=== PATIENT | female | born 2000 | race Caucasian/White ===

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

== ENCOUNTER 2022-11-03 07:00 | Inpatient (IN) | payer OTHER ==
[2022-11-03] VITALS (29 sets, daily range): BP systolic 90–150; BP diastolic 50–92
[~2022-11-03] VITALS: Ht 165.1 cm; Wt 85.0 kg
[2022-11-03 10:58] LABS: BASOPHILS ABSOLUTE AUTO 0.05 K/mm3 (0.00-0.23); BASOPHILS PERCENT AUTO 0 % (0-2); EOSINOPHILS PERCENT AUTO 0 % (0-6); Hematocrit 35.9 % (33.0-51.0); Hemoglobin 11.5 g/dL (11.5-16.0); IMMATURE GRAN ABSOLUTE AUTO 0.06 K/mm3 (0.00-0.10); IMMATURE GRAN PERCENT AUTO 1 % (0-1); LYMPHOCYTES ABSOLUTE AUTO 2.11 K/mm3 (0.84-5.20); LYMPHOCYTES PERCENT AUTO 18 % (21-46); MONOCYTES ABSOLUTE AUTO 0.63 K/mm3 (0.16-1.47); MONOCYTES PERCENT AUTO 5 % (4-13); Mean Corpuscular HGB 27.1 pg (26.0-34.0); Mean Corpuscular Volume 85 fL (80-100); Mean Platelet Volume 10.6 fL (9.1-12.4); NEUTROPHILS ABSOLUTE AUTO 9.16 K/mm3 (1.96-9.15); NEUTROPHILS PERCENT AUTO 76 % (41-73); Platelet Count 292 K/mm3 (150-400); RDW Coefficient Variation 12.9 % (11.7-14.2); RDW Standard Deviation 39.3 fL (35.1-46.3); Red Blood Cell Count 4.25 M/mm3 (3.80-5.20); White Blood Cell Count 12.01 K/mm3 (4.00-11.30)
[2022-11-04 02:38] VITALS: BP 122/59
[2022-11-04 07:25] LABS: Hematocrit 34.4 % (33.0-51.0); Hemoglobin 11.3 g/dL (11.5-16.0); Mean Corpuscular HGB 27.7 pg (26.0-34.0); Mean Corpuscular HGB Conc 32.8 g/dL (31.5-36.5); Mean Corpuscular Volume 84 fL (80-100); Mean Platelet Volume 10.1 fL (9.1-12.4); Platelet Count 240 K/mm3 (150-400); RDW Coefficient Variation 12.8 % (11.7-14.2); RDW Standard Deviation 39.2 fL (35.1-46.3); Red Blood Cell Count 4.08 M/mm3 (3.80-5.20); White Blood Cell Count 13.31 K/mm3 (4.00-11.30)
[2022-11-04 07:49] VITALS: BP 106/58
[2022-11-04 11:13] VITALS: BP 114/54
[2022-11-04] MEDS ORDERED: IBUP800 PO (16:39)
[2022-11-04 17:46] VITALS: BP 117/63
--- NOTE | 2022-11-04 17:51 | NUR ---
BANDS MATCHED. PT TO BE DISCHARGED HOME WITH .
== END 2022-11-04 18:20 | disposition home or self-care (01) | DRG 806 ==
LOC: OBS 07:00 → BC 07:01 → OBS 08:48 → BC 08:49
PROVIDERS: ADMIT Advanced Practice Midwife
PROC: 10E0XZZ Delivery of Products of Conception, External Approach (ICD-10-PCS; principal; 2022-11-03)
PROC: 10907ZC Drainage of Amniotic Fluid, Therapeutic from Products of Conception, Via Natural or Artificial Opening (ICD-10-PCS; 2022-11-03)
PROC: 3E033VJ Introduction of Other Hormone into Peripheral Vein, Percutaneous Approach (ICD-10-PCS; 2022-11-03)
PROC: 3E0R3BZ Introduction of Anesthetic Agent into Spinal Canal, Percutaneous Approach (ICD-10-PCS; 2022-11-03)
PROC: 00HU33Z Insertion of Infusion Device into Spinal Canal, Percutaneous Approach (ICD-10-PCS; 2022-11-03)
DX: O99.344 Other mental disorders complicating childbirth (principal); O98.32 Other infections with a predominantly sexual mode of transmission complicating childbirth; Z37.0 Single live birth; F31.9 Bipolar disorder, unspecified; A60.09 Herpesviral infection of other urogenital tract; F41.9 Anxiety disorder, unspecified; Z91.018 Allergy to other foods; Z91.040 Latex allergy status; Z3A.39 39 weeks gestation of pregnancy
CPT/HCPCS: 36415; 51702; 85025; 85027; 86850; 86900; 86901; A9270; J2210; J2590; J3010; J7120

== ENCOUNTER 2023-02-15 21:48 | Emergency (ER) | payer OTHER ==
[~2023-02-15] VITALS: Ht 165.1 cm; Wt 68.0 kg
[2023-02-15 22:16] VITALS: BP 154/88
[2023-02-15 22:46] LABS: Hematocrit 39.3 % (33.0-51.0); Hemoglobin 13.3 g/dL (11.5-16.0); Mean Corpuscular HGB Conc 33.8 g/dL (31.5-36.5); Mean Corpuscular Volume 86 fL (80-100); Mean Platelet Volume 10.7 fL (9.1-12.4); Platelet Count 280 K/mm3 (150-400); RDW Coefficient Variation 12.9 % (11.7-14.2); RDW Standard Deviation 39.9 fL (35.1-46.3); Red Blood Cell Count 4.58 M/mm3 (3.80-5.20); White Blood Cell Count 6.89 K/mm3 (4.00-11.30)
[2023-02-15 23:06] LABS: Albumin, Blood 4.3 g/dL (3.4-5.0); Bilirubin, Total 0.4 mg/dL (0.1-1.0); Bun/Creatinine Ratio 21.3 (12.0-20.0); Calcium, Blood 9.3 mg/dL (8.5-10.1); Creatinine, Blood 0.75 mg/dL (0.40-1.00); Globulin, Blood 4.1 g/dL (2.2-4.0); Potassium, Blood 3.3 mmol/L (3.5-5.5); Total Protein, Blood 8.4 g/dL (6.4-8.2)
[2023-02-15 23:28] LABS: BASOPHILS ABSOLUTE MAN 0.06 K/mm3 (0.00-0.23); BASOPHILS PERCENT MAN 1 % (0-2); EOSINOPHILS PERCENT MAN 3 % (0-6); LYMPHOCYTES PERCENT MAN 32 % (21-46); MONOCYTES ABSOLUTE MAN 0.75 K/mm3 (0.16-1.47); MONOCYTES PERCENT MAN 11 % (4-13); NEUTROPHILS ABSOLUTE MAN 3.65 K/mm3 (1.96-9.15); SEG NEUTROPHILS PERCENT MAN 53 % (41-73); TOTAL CELLS COUNTED 100
== END 2023-02-15 23:44 | disposition home or self-care (01) ==
LOC: ER 21:48
PROVIDERS: Physician Assistant
DX: K52.9 Noninfective gastroenteritis and colitis, unspecified (principal); Z91.040 Latex allergy status; Z91.018 Allergy to other foods
CPT/HCPCS: 80053; 84703; 85025; 99284; A9270

== ENCOUNTER 2023-11-29 16:15 | Emergency (ER) | payer OTHER ==
[~2023-11-29] VITALS: Ht 165.1 cm; Wt 70.3 kg
[2023-11-29 16:26] VITALS: BP 128/83
[2023-11-29] MEDS ORDERED: CefTRIAXone 1000 MG Vial IM ONE (16:30)
== END 2023-11-29 16:49 | disposition home or self-care (01) ==
LOC: ER 16:15
DX: L03.113 Cellulitis of right upper limb (principal)
CPT/HCPCS: 96372; 99283-25; J0696

== ENCOUNTER 2024-09-12 09:44 | Emergency (ER) | payer OTHER ==
[~2024-09-12] VITALS: Ht 167.6 cm; Wt 70.3 kg
[2024-09-12] MEDS ORDERED: NS 1,000 ML IV SCH (10:15)
[2024-09-12 10:23] LABS: Source, Urine Clean Catch
[2024-09-12 10:41] LABS: Appearance, Urine Clear (Clear); Bilirubin, Urine Neg (Neg); Blood, Urine 3+ (Neg); Color, Urine Yellow (P-Yellow); Glucose Qualitative, Urine Neg (Neg); Ketones, Urine Neg (Neg); Leukocyte Esterase, Urine Neg (Neg); Nitrite, Urine Neg (Neg); Protein, Urine 1+ (Neg); Specific Gravity, Urine 1.015 (1.003-1.022); Urobilinogen, Urine NORM (Normal)
[2024-09-12 10:55] LABS: BASOPHILS ABSOLUTE AUTO 0.06 K/mm3 (0.00-0.23); BASOPHILS PERCENT AUTO 1 % (0-2); EOSINOPHILS ABSOLUTE AUTO 0.01 K/mm3 (0.00-0.68); EOSINOPHILS PERCENT AUTO 0 % (0-6); Hematocrit 40.3 % (33.0-51.0); Hemoglobin 13.6 g/dL (11.5-16.0); IMMATURE GRAN ABSOLUTE AUTO 0.02 K/mm3 (0.00-0.10); IMMATURE GRAN PERCENT AUTO 0 % (0-1); LYMPHOCYTES ABSOLUTE AUTO 1.47 K/mm3 (0.84-5.20); LYMPHOCYTES PERCENT AUTO 12 % (21-46); MONOCYTES ABSOLUTE AUTO 0.61 K/mm3 (0.16-1.47); MONOCYTES PERCENT AUTO 5 % (4-13); Mean Corpuscular HGB 29.4 pg (26.0-34.0); Mean Corpuscular HGB Conc 33.7 g/dL (31.5-36.5); Mean Corpuscular Volume 87 fL (80-100); Mean Platelet Volume 10.5 fL (9.1-12.4); NEUTROPHILS ABSOLUTE AUTO 9.68 K/mm3 (1.96-9.15); NEUTROPHILS PERCENT AUTO 82 % (41-73); Platelet Count 237 K/mm3 (150-400); RDW Coefficient Variation 11.9 % (11.7-14.2); RDW Standard Deviation 38.3 fL (35.1-46.3); Red Blood Cell Count 4.62 M/mm3 (3.80-5.20); White Blood Cell Count 11.85 K/mm3 (4.00-11.30)
[2024-09-12 10:58] LABS: Amorphous Light (0-Heavy); Bacteria Many /hpf; Mucus Heavy (0-Heavy); Red Blood Cells, Urine 0-2 /hpf (0-2); Squamous Epithelial Cells Many /hpf (Few); White Blood Cells, Urine 0-2 /hpf (0-5)
[2024-09-12 10:59] LABS: Transitional Epithelial Cells Rare /hpf (0-Rare)
[2024-09-12] MEDS ORDERED: Ketorolac Tromethamine 15mg Vial IV ONE (11:00)
[2024-09-12 11:25] LABS: Albumin, Blood 3.9 g/dL (3.4-5.0); Bilirubin, Total 0.6 mg/dL (0.1-1.0); Bun/Creatinine Ratio 18.8 (12.0-20.0); Creatinine, Blood 0.64 mg/dL (0.40-1.00); Magnesium, Blood 1.8 mg/dL (1.6-2.4); Phosphorus, Blood 2.9 mg/dL (2.5-4.9); Potassium, Blood 3.5 mmol/L (3.5-5.5); Total Protein, Blood 7.9 g/dL (6.4-8.2)
[2024-09-12] MEDS ORDERED: DiphenhydrAMINE HCl 50 MG/ML 1ML Vial IV ONE (12:30)
[2024-09-12] MEDS ORDERED: Prochlorperazine Edisylate 10 mg Vial IV ONE (12:30)
[2024-09-12 13:59] VITALS: BP 118/69
== END 2024-09-12 14:00 | disposition home or self-care (01) ==
LOC: ER 09:44
PROVIDERS: Physician Assistant
DX: E86.0 Dehydration (principal); Z91.040 Latex allergy status; Z91.018 Allergy to other foods; Z59.89 Other problems related to housing and economic circumstances
CPT/HCPCS: 80053; 81001; 81025; 83690; 83735; 84100; 85025; 85379; 87086; 93005; 93010; 96374; 96375; 99284-25; J0780; J1200; J1885; J7030

== ENCOUNTER 2024-11-24 23:24 | Emergency (ER) | payer OTHER ==
[~2024-11-24] VITALS: Ht 165.1 cm; Wt 70.3 kg
[2024-11-24 23:35] VITALS: BP 130/86
== END 2024-11-25 01:11 | disposition home or self-care (01) ==
LOC: ER 23:24
DX: M79.602 Pain in left arm (principal); Z91.040 Latex allergy status; Z91.018 Allergy to other foods
CPT/HCPCS: 93971; 99283-25

== ENCOUNTER 2025-01-22 19:33 | Emergency (ER) | payer OTHER ==
[~2025-01-22] VITALS: Ht 165.1 cm; Wt 70.3 kg
[2025-01-22 21:19] VITALS: BP 109/45
[2025-01-22] MEDS ORDERED: Ondansetron 4 MG SoluTab SL ONE (22:40)
== END 2025-01-22 22:54 | disposition home or self-care (01) ==
LOC: ER 19:33
DX: G43.909 Migraine, unspecified, not intractable, without status migrainosus (principal); R06.4 Hyperventilation; Z91.040 Latex allergy status; Z91.018 Allergy to other foods
CPT/HCPCS: 99282; A9270

== ENCOUNTER 2025-01-27 23:44 | Emergency (ER) | payer OTHER ==
[~2025-01-27] VITALS: Ht 165.1 cm; Wt 70.3 kg
[2025-01-28 01:43] LABS: BASOPHILS ABSOLUTE AUTO 0.07 K/mm3 (0.00-0.23); BASOPHILS PERCENT AUTO 1 % (0-2); EOSINOPHILS ABSOLUTE AUTO 0.29 K/mm3 (0.00-0.68); EOSINOPHILS PERCENT AUTO 4 % (0-6); Hematocrit 41.1 % (33.0-51.0); Hemoglobin 13.9 g/dL (11.5-16.0); IMMATURE GRAN ABSOLUTE AUTO 0.05 K/mm3 (0.00-0.10); IMMATURE GRAN PERCENT AUTO 1 % (0-1); LYMPHOCYTES ABSOLUTE AUTO 1.75 K/mm3 (0.84-5.20); LYMPHOCYTES PERCENT AUTO 24 % (21-46); MONOCYTES ABSOLUTE AUTO 0.53 K/mm3 (0.16-1.47); MONOCYTES PERCENT AUTO 7 % (4-13); Mean Corpuscular HGB Conc 33.8 g/dL (31.5-36.5); Mean Corpuscular Volume 86 fL (80-100); NEUTROPHILS ABSOLUTE AUTO 4.69 K/mm3 (1.96-9.15); NEUTROPHILS PERCENT AUTO 64 % (41-73); NRBC ABSOLUTE 0.00 K/mm3 (0.00-0.02); NRBC Auto 0.0 /100 WBC (0.0-0.2); Platelet Count 260 K/mm3 (150-400); RDW Coefficient Variation 11.8 % (11.7-14.2); RDW Standard Deviation 37.2 fL (35.1-46.3)
[2025-01-28 02:04] LABS: Alanine Aminotransfer (ALT/SGP 11.0 U/L (12-78); Albumin, Blood 4.7 g/dL (3.4-5.0); Albumin/Globulin Ratio 1.4 (0.8-1.8); Anion Gap 9.0 mmol/L (3-11); Aspartate Aminotrans (AST/SGOT 12.0 U/L (12-37); Bilirubin, Total 0.9 mg/dL (0.1-1.0); Blood Urea Nitrogen 15.0 mg/dL (8-24); CO2, Blood 24.0 mmol/L (21-32); Calcium, Blood 9.1 mg/dL (8.5-10.1); Chloride, Blood 106.0 mmol/L (98-108); Creatinine, Blood 0.7 mg/dL (0.40-1.00); Globulin, Blood 3.4 g/dL (2.2-4.0); Glucose, Blood 84.0 mg/dL (70-99); Potassium, Blood 3.3 mmol/L (3.5-5.5); Sodium, Blood 136.0 mmol/L (136-145); Total Protein, Blood 8.1 g/dL (6.4-8.2)
[2025-01-28 02:42] LABS: Source, Urine Clean Catch
[2025-01-28 02:59] LABS: Bilirubin, Urine Neg (Neg); Glucose Qualitative, Urine Neg (Neg); Ketones, Urine 4+ (Neg); Leukocyte Esterase, Urine 3+ (Neg); Protein, Urine 1+ (Neg); Specific Gravity, Urine 1.020 (1.003-1.022); Urobilinogen, Urine NORM (Normal)
[2025-01-28 03:02] LABS: Color, Urine Yellow (P-Yellow)
[2025-01-28 03:05] LABS: Red Blood Cells, Urine 0-2 /hpf (0-2)
[2025-01-28 03:32] VITALS: BP 109/64
== END 2025-01-28 03:34 | disposition home or self-care (01) ==
LOC: ER 23:44
PROVIDERS: Emergency Medicine
DX: R10.11 Right upper quadrant pain (principal); Z91.040 Latex allergy status; Z91.018 Allergy to other foods
CPT/HCPCS: 76705; 80053; 81001; 81025; 83690; 85025; 87086; 99284-25

== ENCOUNTER 2025-01-30 00:59 | Emergency (ER) | payer OTHER ==
[~2025-01-30] VITALS: Ht 165.1 cm; Wt 68.0 kg
[2025-01-30 02:59] LABS: BASOPHILS ABSOLUTE AUTO 0.08 K/mm3 (0.00-0.23); BASOPHILS PERCENT AUTO 1 % (0-2); EOSINOPHILS ABSOLUTE AUTO 0.01 K/mm3 (0.00-0.68); EOSINOPHILS PERCENT AUTO 0 % (0-6); Hematocrit 41.6 % (33.0-51.0); Hemoglobin 14.4 g/dL (11.5-16.0); IMMATURE GRAN ABSOLUTE AUTO 0.01 K/mm3 (0.00-0.10); IMMATURE GRAN PERCENT AUTO 0 % (0-1); LYMPHOCYTES ABSOLUTE AUTO 2.22 K/mm3 (0.84-5.20); LYMPHOCYTES PERCENT AUTO 32 % (21-46); MONOCYTES ABSOLUTE AUTO 0.50 K/mm3 (0.16-1.47); MONOCYTES PERCENT AUTO 7 % (4-13); Mean Corpuscular HGB Conc 34.6 g/dL (31.5-36.5); Mean Corpuscular Volume 84 fL (80-100); NEUTROPHILS ABSOLUTE AUTO 4.22 K/mm3 (1.96-9.15); NEUTROPHILS PERCENT AUTO 60 % (41-73); NRBC ABSOLUTE 0.00 K/mm3 (0.00-0.02); NRBC Auto 0.0 /100 WBC (0.0-0.2); Platelet Count 265 K/mm3 (150-400); RDW Coefficient Variation 11.9 % (11.7-14.2); RDW Standard Deviation 35.8 fL (35.1-46.3)
[2025-01-30 03:22] LABS: Alanine Aminotransfer (ALT/SGP 10.0 U/L (12-78); Albumin, Blood 4.9 g/dL (3.4-5.0); Albumin/Globulin Ratio 1.3 (0.8-1.8); Anion Gap 10.0 mmol/L (3-11); Aspartate Aminotrans (AST/SGOT 11.0 U/L (12-37); Bilirubin, Total 0.7 mg/dL (0.1-1.0); Blood Urea Nitrogen 12.0 mg/dL (8-24); CO2, Blood 24.0 mmol/L (21-32); Calcium, Blood 9.3 mg/dL (8.5-10.1); Chloride, Blood 107.0 mmol/L (98-108); Creatinine, Blood 0.69 mg/dL (0.40-1.00); Globulin, Blood 3.7 g/dL (2.2-4.0); Glucose, Blood 88.0 mg/dL (70-99); Potassium, Blood 3.7 mmol/L (3.5-5.5); Sodium, Blood 137.0 mmol/L (136-145); Total Protein, Blood 8.6 g/dL (6.4-8.2)
[2025-01-30] MEDS ORDERED: FentaNYL Citrate 50 MCG/ML 2 ML Injection IV PRN (03:50)
[2025-01-30] MEDS ORDERED: NS 1,000 ML IV SCH (03:50)
[2025-01-30 04:30] VITALS: BP 106/57
== END 2025-01-30 05:14 | disposition home or self-care (01) ==
LOC: ER 00:59
PROVIDERS: Emergency Medicine
DX: R10.11 Right upper quadrant pain (principal); E86.0 Dehydration; Z59.89 Other problems related to housing and economic circumstances; Z91.040 Latex allergy status; Z91.018 Allergy to other foods
CPT/HCPCS: 76705; 80053; 83690; 84703; 85025; 99284-25; J7030

== ENCOUNTER 2025-02-02 05:08 | Emergency (ER) | payer OTHER ==
[~2025-02-02] VITALS: Ht 165.1 cm; Wt 67.1 kg
[2025-02-02 07:03] LABS: BASOPHILS ABSOLUTE AUTO 0.05 K/mm3 (0.00-0.23); BASOPHILS PERCENT AUTO 1 % (0-2); EOSINOPHILS ABSOLUTE AUTO 0.18 K/mm3 (0.00-0.68); EOSINOPHILS PERCENT AUTO 3 % (0-6); Hematocrit 39.6 % (33.0-51.0); Hemoglobin 14.0 g/dL (11.5-16.0); IMMATURE GRAN ABSOLUTE AUTO 0.01 K/mm3 (0.00-0.10); IMMATURE GRAN PERCENT AUTO 0 % (0-1); LYMPHOCYTES ABSOLUTE AUTO 1.51 K/mm3 (0.84-5.20); LYMPHOCYTES PERCENT AUTO 25 % (21-46); MONOCYTES ABSOLUTE AUTO 0.44 K/mm3 (0.16-1.47); MONOCYTES PERCENT AUTO 7 % (4-13); Mean Corpuscular HGB Conc 35.4 g/dL (31.5-36.5); Mean Corpuscular Volume 83 fL (80-100); NEUTROPHILS ABSOLUTE AUTO 3.90 K/mm3 (1.96-9.15); NEUTROPHILS PERCENT AUTO 64 % (41-73); NRBC ABSOLUTE 0.00 K/mm3 (0.00-0.02); NRBC Auto 0.0 /100 WBC (0.0-0.2); Platelet Count 232 K/mm3 (150-400); RDW Coefficient Variation 11.9 % (11.7-14.2); RDW Standard Deviation 35.6 fL (35.1-46.3)
[2025-02-02] MEDS ORDERED: Ondansetron HCl 2 MG / ML 2ML Vial IV ONE (07:05)
[2025-02-02] MEDS ORDERED: FentaNYL Citrate 50 MCG/ML 2 ML Injection IV ONE (07:05)
[2025-02-02 07:16] LABS: Alanine Aminotransfer (ALT/SGP 12.0 U/L (12-78); Albumin, Blood 4.8 g/dL (3.4-5.0); Albumin/Globulin Ratio 1.4 (0.8-1.8); Anion Gap 14.0 mmol/L (3-11); Aspartate Aminotrans (AST/SGOT 10.0 U/L (12-37); Bilirubin, Total 0.9 mg/dL (0.1-1.0); Blood Urea Nitrogen 12.0 mg/dL (8-24); CO2, Blood 21.0 mmol/L (21-32); Calcium, Blood 9.2 mg/dL (8.5-10.1); Chloride, Blood 106.0 mmol/L (98-108); Creatinine, Blood 0.75 mg/dL (0.40-1.00); Globulin, Blood 3.4 g/dL (2.2-4.0); Glucose, Blood 79.0 mg/dL (70-99); Potassium, Blood 3.4 mmol/L (3.5-5.5); Sodium, Blood 138.0 mmol/L (136-145); Total Protein, Blood 8.2 g/dL (6.4-8.2)
[2025-02-02] MEDS ORDERED: Morphine Sulfate 4 MG/1 ML Injection IV ONE (08:10)
[2025-02-02] MEDS ORDERED: NS 1,000 ML IV SCH (08:25)
[2025-02-02] MEDS ORDERED: OXYACE7.5T PO (08:54)
[2025-02-02] MEDS ORDERED: ONDA4ODT MM (08:54)
[2025-02-02] MEDS ORDERED: LORazepam 2 MG/ML 1ML Injection IV ONE (09:05)
[2025-02-02] MEDS ORDERED: OxyCODONE 5 mg/Acetamin 325 mg TABLET PO ONE (09:40)
[2025-02-02] MEDS ORDERED: IBUP600 PO (09:58)
[2025-02-02] MEDS ORDERED: LIDO700A20 TOP (09:58)
[2025-02-02 10:00] VITALS: BP 114/67
== END 2025-02-02 10:14 | disposition home or self-care (01) ==
LOC: ER 05:08
PROVIDERS: Emergency Medicine
DX: K80.70 Calculus of gallbladder and bile duct without cholecystitis without obstruction (principal); Z91.040 Latex allergy status; E87.6 Hypokalemia
CPT/HCPCS: 76705; 80053; 83690; 85025; 96361; 96374; 96375; 99284-25; A9270; J2060; J2270; J2405; J3010; J7030

== ENCOUNTER 2025-02-04 07:06 | Day surgery (SDC) | payer OTHER ==
[2025-02-04] VITALS (10 sets, daily range): BP systolic 116–133; BP diastolic 58–98
[~2025-02-04] VITALS: Ht 165.1 cm; Wt 67.1 kg
[~2025-02-04 07:06] MED LIST changes: +IBUP600 PO; +LIDO700A20 TOP; +ONDA4ODT MM; +OXYACE7.5T PO
[2025-02-04] MEDS ORDERED: Ketorolac Tromethamine 30mg Vial IV ONE (07:35)
[2025-02-04] MEDS ORDERED: Ondansetron HCl 2 MG / ML 2ML Vial IV ONE (07:55)
[2025-02-04] MEDS ORDERED: Midazolam HCl 1MG / ML 2ML Vial IV ONE ×2 (08:20→11:30)
[2025-02-04 08:39] LABS: BASOPHILS ABSOLUTE AUTO 0.05 K/mm3 (0.00-0.23); BASOPHILS PERCENT AUTO 1 % (0-2); Hematocrit 37.8 % (33.0-51.0); Hemoglobin 12.9 g/dL (11.5-16.0); LYMPHOCYTES ABSOLUTE AUTO 1.07 K/mm3 (0.84-5.20); LYMPHOCYTES PERCENT AUTO 16 % (21-46); MONOCYTES ABSOLUTE AUTO 0.28 K/mm3 (0.16-1.47); MONOCYTES PERCENT AUTO 4 % (4-13); Mean Corpuscular HGB Conc 34.1 g/dL (31.5-36.5); Mean Corpuscular Volume 85 fL (80-100); NRBC ABSOLUTE 0.00 K/mm3 (0.00-0.02); NRBC Auto 0.0 /100 WBC (0.0-0.2); RDW Coefficient Variation 11.9 % (11.7-14.2); RDW Standard Deviation 36.9 fL (35.1-46.3)
[2025-02-04 08:47] LABS: EOSINOPHILS ABSOLUTE AUTO 1.25 K/mm3 (0.00-0.68); EOSINOPHILS PERCENT AUTO 18 % (0-6); IMMATURE GRAN ABSOLUTE AUTO 0.01 K/mm3 (0.00-0.10); IMMATURE GRAN PERCENT AUTO 0 % (0-1); NEUTROPHILS ABSOLUTE AUTO 4.24 K/mm3 (1.96-9.15); NEUTROPHILS PERCENT AUTO 62 % (41-73)
[2025-02-04 08:54] LABS: Alanine Aminotransfer (ALT/SGP 10.0 U/L (12-78); Albumin, Blood 4.4 g/dL (3.4-5.0); Albumin/Globulin Ratio 1.4 (0.8-1.8); Anion Gap 17.0 mmol/L (3-11); Aspartate Aminotrans (AST/SGOT 10.0 U/L (12-37); Bilirubin, Direct 0.2 mg/dL (0.0-0.3); Bilirubin, Indirect 0.5 mg/dL (0.1-0.7); Bilirubin, Total 0.7 mg/dL (0.1-1.0); Blood Urea Nitrogen 13.0 mg/dL (8-24); CO2, Blood 17.0 mmol/L (21-32); Calcium, Blood 9.0 mg/dL (8.5-10.1); Chloride, Blood 105.0 mmol/L (98-108); Creatinine, Blood 0.69 mg/dL (0.40-1.00); Globulin, Blood 3.2 g/dL (2.2-4.0); Glucose, Blood 65.0 mg/dL (70-99); Potassium, Blood 3.3 mmol/L (3.5-5.5); Sodium, Blood 136.0 mmol/L (136-145); Total Protein, Blood 7.6 g/dL (6.4-8.2)
[2025-02-04] MEDS ORDERED: Potassium Chl 20MEQ/Water100ML 200 ML IV ONE (09:00)
[2025-02-04] MEDS ORDERED: D5W-NS 500 ML IV SCH (09:00)
[2025-02-04] MEDS ORDERED: Potassium Chl 20MEQ/Water100ML 100 ML IV SCH (09:15)
[2025-02-04 09:26] LABS: Source, Urine Clean Catch
[2025-02-04 09:37] LABS: Bilirubin, Urine Neg (Neg); Glucose Qualitative, Urine Neg (Neg); Ketones, Urine 4+ (Neg); Leukocyte Esterase, Urine 1+ (Neg); Protein, Urine Neg (Neg); Specific Gravity, Urine 1.015 (1.003-1.022); Urobilinogen, Urine NORM (Normal)
[2025-02-04 09:55] LABS: Color, Urine Yellow (P-Yellow)
[2025-02-04] MEDS ORDERED: Ampicillin Sod/Sulbactam Sod 3 GM in NS 100 ML IV ONE (10:30)
[2025-02-04] MEDS ORDERED: HYDROmorphone HCl/Pf 1MG SYR IV ONE (10:30)
[2025-02-04] MEDS ORDERED: Bupivacaine 0.5% HCl 5 MG/ML 30MLVIAL ONE (10:56)
[2025-02-04] MEDS ORDERED: Rocuronium Bromide 10 MG/ML 5ML Injection IV ONE ×2 (11:03→11:56)
[2025-02-04] MEDS ORDERED: FentaNYL Citrate 50 MCG/ML 2 ML Injection ONE ×2 (11:03→11:56)
[2025-02-04] MEDS ORDERED: Metoclopramide HCl 5MG / ML 2ML Vial IV PRN (11:25)
[2025-02-04] MEDS ORDERED: Ondansetron HCl 2 MG / ML 2ML Vial IV PRN ×2 (11:25→13:15)
[2025-02-04] MEDS ORDERED: FentaNYL Citrate 50 MCG/ML 2 ML Injection IV PRN (11:25)
[2025-02-04] MEDS ORDERED: Midazolam HCl 1MG / ML 2ML Vial ONE (11:27)
[2025-02-04] MEDS ORDERED: Ketorolac Tromethamine 30mg Vial IV PRN (11:30)
[2025-02-04] MEDS ORDERED: Dexamethasone Sod Phos 10 MG/ML 1ML VIAL ONE (11:48)
[2025-02-04] MEDS ORDERED: Phenylephrine HCl 100 MCG/ML-NS 10MLSYR (1MG/10ML) ONE (12:01)
[2025-02-04] MEDS ORDERED: Neostigmine Methylsulfate 5MG/5ML SYR ONE (12:21)
[2025-02-04] MEDS ORDERED: Glycopyrrolate 0.2 MG/ML 5ML VIAL ONE (12:21)
[2025-02-04] MEDS ORDERED: Ondansetron HCl 2 MG / ML 2ML Vial ONE (12:31)
[2025-02-04] MEDS ORDERED: HYDROcodone 5-APAP 325 TAB PO PRN (13:15)
--- NOTE | 2025-02-04 13:30 | NUR ---
POST OP ARRIVAL TO SURGICAL UNIT VIA GOURNEY, SLID TO BED. VERY DROWSY BUT OPENS EYES & SPEAKS w/ A SLUR. ASSESSMENT CHARTED. MOM AT BEDSIDE, LOVING & ATTENTIVE. Rx GIVEN TO MOM. SIP OF WATER GIVEN. MOM EDUCATED ON WAITING TO TAKE IN ORAL FLUIDS UNTIL MORE ALERT.
[2025-02-04] MEDS ORDERED: Norco 5-325 Ta1 EACH PO (16:35)
--- NOTE | 2025-02-04 18:33 | NUR ---
DISCHARGE EATING, DRINKING, & VOIDING. PAIN WELL CONTROLLED. AMBULATES EASILY. LAP SITES WNL. FEELS COMFORTABLE w/ DC.
== END 2025-02-04 18:40 | disposition home or self-care (01) ==
LOC: ORSCMMR 07:06 → ER 07:06 → SURS 07:07 → ER 11:04 → SURS 13:22 → EDSTATUS 15:15 → SURS 18:40 → ORSCMMR 18:40
PROVIDERS: Student in an Organized Health Care Education/Training Program; Surgery
PROC: 0FT44ZZ Resection of Gallbladder, Percutaneous Endoscopic Approach (ICD-10-PCS; principal; 2025-02-04 11:15)
DX: K80.12 Calculus of gallbladder with acute and chronic cholecystitis without obstruction (principal); Z91.040 Latex allergy status; Z91.018 Allergy to other foods
CPT/HCPCS: 76705; 80048; 80076; 81001; 83690; 84703; 85025; 88304; 93005; 93010; 96361; 96365; 96367; 96375; 99285-25; A9270; C1729; J0295; J1100; J1171; J1885; J2250; J2371; J2405; J2704; J2710; J3010; J3480; J7042; J7120

== ENCOUNTER → 2025-02-09 | Outpatient (CLI) | payer OTHER ==
[~2025-02-09] MED LIST changes: +Norco 5-325 Ta1 EACH PO
== END ==
LOC: LAB SHORT 16:31 → LAB 16:31
DX: N39.0 Urinary tract infection, site not specified (principal)
CPT/HCPCS: 87086

== ENCOUNTER → 2025-02-16 | Outpatient (CLI) | payer OTHER ==
[2025-02-16 15:15] LABS: BASOPHILS ABSOLUTE AUTO 0.03 K/mm3 (0.00-0.23); BASOPHILS PERCENT AUTO 1 % (0-2); EOSINOPHILS ABSOLUTE AUTO 0.00 K/mm3 (0.00-0.68); EOSINOPHILS PERCENT AUTO 0 % (0-6); Hematocrit 35.5 % (33.0-51.0); Hemoglobin 12.2 g/dL (11.5-16.0); IMMATURE GRAN ABSOLUTE AUTO 0.00 K/mm3 (0.00-0.10); IMMATURE GRAN PERCENT AUTO 0 % (0-1); LYMPHOCYTES ABSOLUTE AUTO 1.37 K/mm3 (0.84-5.20); LYMPHOCYTES PERCENT AUTO 44 % (21-46); MONOCYTES ABSOLUTE AUTO 0.55 K/mm3 (0.16-1.47); MONOCYTES PERCENT AUTO 18 % (4-13); Mean Corpuscular HGB Conc 34.4 g/dL (31.5-36.5); Mean Corpuscular Volume 86 fL (80-100); NEUTROPHILS ABSOLUTE AUTO 1.15 K/mm3 (1.96-9.15); NEUTROPHILS PERCENT AUTO 37 % (41-73); NRBC ABSOLUTE 0.00 K/mm3 (0.00-0.02); NRBC Auto 0.0 /100 WBC (0.0-0.2); Platelet Count 192 K/mm3 (150-400); RDW Coefficient Variation 13.0 % (11.7-14.2); RDW Standard Deviation 40.2 fL (35.1-46.3)
[2025-02-16 15:30] LABS: Alanine Aminotransfer (ALT/SGP 13.0 U/L (12-78); Albumin, Blood 4.0 g/dL (3.4-5.0); Albumin/Globulin Ratio 1.3 (0.8-1.8); Anion Gap 12.0 mmol/L (3-11); Aspartate Aminotrans (AST/SGOT 13.0 U/L (12-37); Bilirubin, Total 0.3 mg/dL (0.1-1.0); Blood Urea Nitrogen 6.0 mg/dL (8-24); CO2, Blood 27.0 mmol/L (21-32); Calcium, Blood 8.7 mg/dL (8.5-10.1); Chloride, Blood 105.0 mmol/L (98-108); Creatinine, Blood 0.72 mg/dL (0.40-1.00); Globulin, Blood 3.2 g/dL (2.2-4.0); Glucose, Blood 90.0 mg/dL (70-99); Potassium, Blood 4.1 mmol/L (3.5-5.5); Sodium, Blood 140.0 mmol/L (136-145); Total Protein, Blood 7.2 g/dL (6.4-8.2)
== END ==
LOC: LAB SHORT 15:03 → LAB 15:03
PROVIDERS: Family Medicine
DX: N39.0 Urinary tract infection, site not specified (principal)
CPT/HCPCS: 80053; 85025; 87086

== ENCOUNTER 2025-03-30 22:00 | Emergency (ER) | payer OTHER ==
[~2025-03-30] VITALS: Ht 165.1 cm; Wt 68.0 kg
[2025-03-30 23:35] LABS: BASOPHILS ABSOLUTE AUTO 0.06 K/mm3 (0.00-0.23); BASOPHILS PERCENT AUTO 1 % (0-2); EOSINOPHILS ABSOLUTE AUTO 0.16 K/mm3 (0.00-0.68); EOSINOPHILS PERCENT AUTO 3 % (0-6); Hematocrit 40.2 % (33.0-51.0); Hemoglobin 13.4 g/dL (11.5-16.0); IMMATURE GRAN ABSOLUTE AUTO 0.01 K/mm3 (0.00-0.10); IMMATURE GRAN PERCENT AUTO 0 % (0-1); LYMPHOCYTES ABSOLUTE AUTO 2.67 K/mm3 (0.84-5.20); LYMPHOCYTES PERCENT AUTO 41 % (21-46); MONOCYTES ABSOLUTE AUTO 0.40 K/mm3 (0.16-1.47); MONOCYTES PERCENT AUTO 6 % (4-13); Mean Corpuscular HGB Conc 33.3 g/dL (31.5-36.5); Mean Corpuscular Volume 87 fL (80-100); NEUTROPHILS ABSOLUTE AUTO 3.19 K/mm3 (1.96-9.15); NEUTROPHILS PERCENT AUTO 49 % (41-73); NRBC ABSOLUTE 0.00 K/mm3 (0.00-0.02); NRBC Auto 0.0 /100 WBC (0.0-0.2); Platelet Count 257 K/mm3 (150-400); RDW Coefficient Variation 12.4 % (11.7-14.2); RDW Standard Deviation 39.6 fL (35.1-46.3)
[2025-03-30 23:55] LABS: Alanine Aminotransfer (ALT/SGP 15 U/L (12-78); Albumin, Blood 4.8 g/dL (3.4-5.0); Albumin/Globulin Ratio 1.5 (0.8-1.8); Anion Gap 9 mmol/L (3-11); Aspartate Aminotrans (AST/SGOT 13 U/L (12-37); Beta HCG, Quantitative, Serum <1 mIU/mL (0-3); Bilirubin, Total 0.5 mg/dL (0.1-1.0); Blood Urea Nitrogen 12 mg/dL (8-24); CO2, Blood 24 mmol/L (21-32); Calcium, Blood 9.3 mg/dL (8.5-10.1); Chloride, Blood 109 mmol/L (98-108); Creatinine, Blood 0.64 mg/dL (0.40-1.00); Globulin, Blood 3.2 g/dL (2.2-4.0); Glucose, Blood 92 mg/dL (70-99); Potassium, Blood 3.2 mmol/L (3.5-5.5); Sodium, Blood 139 mmol/L (136-145); Total Protein, Blood 8.0 g/dL (6.4-8.2)
[2025-03-31 00:56] VITALS: BP 129/79
== END 2025-03-31 00:57 | disposition home or self-care (01) ==
LOC: ER 22:00
PROVIDERS: Student in an Organized Health Care Education/Training Program
DX: R10.9 Unspecified abdominal pain (principal); E87.6 Hypokalemia
CPT/HCPCS: 74177; 80053; 83690; 84702; 85025; 99284; Q9967